=== PATIENT | female | born 2000 | race African-American/Black ===

== ENCOUNTER 2019-02-04 20:46 | Emergency (ER) | payer SELFPAY ==
[~2019-02-04] VITALS: Ht 160 cm; Wt 59.1 kg
[2019-02-04 21:00] VITALS: BP 123/81
== END 2019-02-04 22:00 | disposition left against medical advice (07) ==
LOC: EMS 20:48
DX: S00.211A Abrasion of right eyelid and periocular area, initial encounter (principal); W21.03XA Struck by baseball, initial encounter; Y93.89 Activity, other specified; Y92.89 Other specified places as the place of occurrence of the external cause; Y99.8 Other external cause status; Z53.21 Procedure and treatment not carried out due to patient leaving prior to being seen by health care provider